=== PATIENT | male | born 1950 | race Caucasian/White ===

== ENCOUNTER 2020-10-24 07:20 | Observation (INO) ==
[2020-10-24 08:30] LABS: Basophils % 0.2 %; Eosinophils # 0.1 K/mcL (0.0-0.6); Eosinophils % 0.4 %; Hematocrit 43.7 % (37.5-50.1); Hemoglobin 14.7 g/dL (12.9-16.9); Immature Granulocytes % 0.5 % (0-4); Lymphocytes # 1.1 K/mcL (0.6-4.6); Lymphocytes % 9.6 %; Mean Corpuscular HGB Conc 33.6 g/dL (31.6-35.5); Mean Corpuscular Hemoglobin 30.1 pg (28.0-33.3); Mean Corpuscular Volume 89.4 fL (83.0-100.0); Monocytes # 0.6 K/mcL (0.0-1.3); Monocytes % 5.6 %; Neutrophils # 9.6 K/mcL (1.6-8.9); Platelet Count 185 K/mcL (140-400); Red Blood Count 4.89 M/mcL (4.19-5.50); Red Cell Distribution Width 13.1 % (11.5-14.5); Segmented Neutrophils % 83.7 %; White Blood Count 11.5 K/mcL (4.3-11.1)
[2020-10-24 08:52] LABS: BUN/Creatinine Ratio 12 (6-26); Blood Urea Nitrogen 12 mg/dL (8-23); Calcium 8.6 mg/dL (8.6-10.3); Carbon Dioxide 24 mEq/L (23-29); Chloride 99 mEq/L (98-107); Glucose 143 mg/dL (70-105); Osmolality,Calculated 280 (280-300); Sodium 134 mEq/L (136-145); Troponin I < 0.03 ng/mL (< 0.04); eGFR For African Americans > 60 (> 60); eGFR For Non-African Americans > 60 (> 60)
[2020-10-24] MEDS ORDERED: Isovue-370 500 ML BOTTLE IVP ONE (09:06)
[2020-10-24] MEDS ORDERED: *HR* Heparin 5,000 UNIT/ML VIAL IVP PRN ×2 (09:59)
[2020-10-24] MEDS ORDERED: *HR* Heparin 5,000 UNIT/ML VIAL IVP ONE (09:59)
[2020-10-24] MEDS: Heparin 25,000UNIT/250ML 1/2NS 25,000 UNIT/250 ML IV.SOLN IVC SCH (10:34)
[2020-10-24 10:47] LABS: Heparin anti-factor XA UFH 0.04 IU/mL (0.30-0.70)
[2020-10-24 10:48] LABS: INR 1.2; Prothrombin Time 14.1 Seconds (9.4-12.1)
[2020-10-24] MEDS ORDERED: Naloxone 0.4 MG/ML INJ IVP PRN (12:03)
[2020-10-24] MEDS ORDERED: *HR* OxyCODONE Immed Rel 5 MG TABLET PO PRN (12:57)
[2020-10-24] MEDS ORDERED: Perflutren Lipid Microsphere 1.3 ML in 0.9 % Sodium Chloride 8.7 ML IVP PRN (12:58)
[2020-10-24] MEDS: *HR* OxyCODONE Immed Rel 5 MG TABLET PO PRN ×2 (13:12→17:59)
[2020-10-24] MEDS ORDERED: Warfarin perPT PO PRN (18:00)
[2020-10-24] MEDS ORDERED: *HR* Warfarin 5 MG TABLET PO ONE (18:00)
[2020-10-25 00:34] LABS: Basophils % 0.2 %; Eosinophils % 0.1 %; Hematocrit 42.3 % (37.5-50.1); Hemoglobin 14.5 g/dL (12.9-16.9); Immature Granulocytes % 0.4 % (0-4); Lymphocytes % 8.2 %; Mean Corpuscular HGB Conc 34.3 g/dL (31.6-35.5); Mean Corpuscular Hemoglobin 30.3 pg (28.0-33.3); Mean Corpuscular Volume 88.5 fL (83.0-100.0); Mean Platelet Volume 9.3 fL (9.4-12.4); Monocytes # 0.8 K/mcL (0.0-1.3); Monocytes % 6.5 %; Neutrophils # 9.8 K/mcL (1.6-8.9); Platelet Count 182 K/mcL (140-400); Red Blood Count 4.78 M/mcL (4.19-5.50); Red Cell Distribution Width 13.1 % (11.5-14.5); Segmented Neutrophils % 84.6 %; White Blood Count 11.6 K/mcL (4.3-11.1)
[2020-10-25 00:39] LABS: Estimated Average Glucose 131 mg/dl; Hemoglobin A1C 6.2 %
[2020-10-25 00:40] LABS: Heparin anti-factor XA UFH 0.74 IU/mL (0.30-0.70)
[2020-10-25 00:41] LABS: INR 1.3; Prothrombin Time 14.6 Seconds (9.4-12.1)
[2020-10-25 00:56] LABS: BUN/Creatinine Ratio 15 (6-26); Blood Urea Nitrogen 15 mg/dL (8-23); Calcium 8.4 mg/dL (8.6-10.3); Carbon Dioxide 24 mEq/L (23-29); Chloride 97 mEq/L (98-107); Chol/HDL Ratio 3.6 (0-4.9); Cholesterol 182 mg/dL (< 200); Glucose 144 mg/dL (70-105); HDL Cholesterol 51 mg/dL (40-59); LDL Cholesterol,Calculated 119 mg/dL (< 100); Osmolality,Calculated 275 (280-300); Phosphorous 3.1 mg/dL (2.7-4.5); Potassium 4.8 mEq/L (3.5-5.1); Sodium 131 mEq/L (136-145); Triglycerides 59 mg/dL (< 150); eGFR For African Americans > 60 (> 60); eGFR For Non-African Americans > 60 (> 60)
[2020-10-25] MEDS: Heparin 25,000UNIT/250ML 1/2NS 25,000 UNIT/250 ML IV.SOLN IVC SCH (05:04)
[2020-10-25] MEDS: *HR* Rivaroxaban 15 MG TABLET PO SCH ×2 (11:14→16:39)
[2020-10-26] MEDS: *HR* Rivaroxaban 15 MG TABLET PO SCH ×2 (07:32→15:58)
[2020-10-26 08:45] LABS: Basophils % 0.1 %; Eosinophils # 0.2 K/mcL (0.0-0.6); Eosinophils % 2.1 %; Hematocrit 40.3 % (37.5-50.1); Hemoglobin 13.8 g/dL (12.9-16.9); Immature Granulocytes % 0.2 % (0-4); Lymphocytes % 10.9 %; Mean Corpuscular HGB Conc 34.2 g/dL (31.6-35.5); Mean Corpuscular Hemoglobin 30.3 pg (28.0-33.3); Mean Corpuscular Volume 88.6 fL (83.0-100.0); Mean Platelet Volume 9.2 fL (9.4-12.4); Monocytes # 0.8 K/mcL (0.0-1.3); Monocytes % 8.6 %; Neutrophils # 6.8 K/mcL (1.6-8.9); Platelet Count 183 K/mcL (140-400); Red Blood Count 4.55 M/mcL (4.19-5.50); Red Cell Distribution Width 13.1 % (11.5-14.5); Segmented Neutrophils % 78.1 %; White Blood Count 8.7 K/mcL (4.3-11.1)
[2020-10-26 09:08] LABS: BUN/Creatinine Ratio 15 (6-26); Blood Urea Nitrogen 13 mg/dL (8-23); Calcium 8.7 mg/dL (8.6-10.3); Carbon Dioxide 26 mEq/L (23-29); Chloride 102 mEq/L (98-107); Glucose 109 mg/dL (70-105); Magnesium 2.1 mg/dL (1.6-2.6); Osmolality,Calculated 275 (280-300); Phosphorous 1.6 mg/dL (2.7-4.5); Potassium 3.8 mEq/L (3.5-5.1); Sodium 132 mEq/L (136-145); eGFR For African Americans > 60 (> 60); eGFR For Non-African Americans > 60 (> 60)
[2020-10-26 15:54] VITALS: BP 146/70
== END 2020-10-26 17:22 | disposition home or self-care (01) ==
LOC: 2ANU 07:20 → EMEROOARM 07:20 → SUATTDRO 11:11 → 2ANU 11:55
PROVIDERS: ADMIT Internal Medicine; ATTEND Internal Medicine